=== PATIENT | female | born 1995 | race Caucasian/White ===

== ENCOUNTER 2016-11-01 13:58 | Emergency (ER) | payer BC ==
[2016-11-01 16:14] VITALS: BP 126/79
--- NOTE | 2016-11-01 16:53 | UC ---
Lower Extremity/Ankle HPI - HPI Summary HPI Summary: 21 year old female presents with Left ankle pain. Patient rolled the ankle playing basketball. Pain located in the medial right ankle, 6/10 pain at rest, 8/10 pain when weight bearing. Patient unable to touch her heel to the floor, states she has significant swelling in the left ankle and foot. Denies numbness /tingling in the left foot. - History of Current Complaint Chief Complaint: UCLowerExtremity Stated Complaint: ANKLE INJURY Time Seen by Provider: 11/01/16 16:24 Hx Obtained From: Patient Hx Last Menstrual Period: 10/22/16 ?: No Onset/Duration: Sudden Onset Severity Initially: Severe Severity Currently: Severe Pain Intensity: 6 Pain Scale Used: 0-10 Numeric Aggravating Factor(s): Standing, Ambulation Alleviating Factor(s): Rest, Elevation, Ice Able to Bear Weight: Yes - Walked into [facility], supporting the leg with her toes - Risk Factors Gout Risk Factors: Negative DVT Risk Factors: Negative Septic Arthritis Risk Factor: Negative - Allergies/Home Medications Allergies/Adverse Reactions: Allergies Allergy/AdvReac Type Severity Reaction Status Date / Time No Known Allergies Allergy Verified 11/01/16 16:08 PMH/Surg Hx/FS Hx/Imm Hx Previously Healthy: Yes Endocrine History Of: Denies: Diabetes Cardiovascular History Of: Denies: Hypertension, Pacemaker/ICD Respiratory History Of: Reports: Asthma - "SPORTS INDUCED ASTHMA" GI/ History Of: Denies: Renal Disease Neurological History Of: Denies: TIA, CVA, Dementia, Seizures, Migraine Psychological History Of: Denies: Anxiety, Depression, Bipolar Disorder, Schizophrenia, Post Traumatic Stress Disorder - Surgical History Surgical History: Yes Surgery Procedure, Year, and Place: wrist surgery 2016 - Family History Known Family History: Positive: Cardiac Disease - Social History Occupation: Student Alcohol Use: Rare Alcohol Amount: ONCE EVERY 2 WEEKS Substance Use Type: None Substance Use Comment - Amount & Last Used: PT STATES SHE HAS SMOKED MARIJUANA BEFORE BUT NOT RECENTLY Smoking Status (MU): Never Smoked Tobacco Have You Smoked in the Last Year: No Household Exposure Type: Cigarettes Review of Systems Constitutional: Negative Skin: Bruising - Left medial ankle Eyes: Negative ENT: Negative Respiratory: Negative Cardiovascular: Negative Gastrointestinal: Negative Genitourinary: Negative Motor: Decreased ROM - left ankle/foot. Unable to flex or extend the foot related to pain, Weakness - left ankle Musculoskeletal: Decreased ROM - left foot/ankle, Edema - Left ankle Neurological: Negative Psychological: Negative All Other Systems Reviewed And Are Negative: Yes Physical Exam Triage Information Reviewed: Yes Appearance: Well-Appearing Vital Signs: Initial Vital Signs Temp 98.2 F 11/01/16 16:09 Pulse 87 11/01/16 16:09 Resp 18 11/01/16 16:09 BP 126/79 11/01/16 16:09 Pulse Ox 100 11/01/16 16:09 Vital Signs Reviewed: Yes Eyes: Positive: Conjunctiva Clear ENT Exam: Normal ENT: Positive: Hearing grossly normal, Pharynx normal, TMs normal Neck: Positive: Supple, Nontender, No Lymphadenopathy Respiratory: Positive: Lungs clear, Normal breath sounds, No respiratory distress, No accessory muscle use Cardiovascular: Positive: RRR, No Murmur, Pulses Normal Abdomen Description: Positive: Nontender, No Organomegaly, Soft Bowel Sounds: Positive: Present Musculoskeletal: Positive: Strength Limited @ - Left foot/ankle, ROM Limited @ - Left ankle, Edema @ - left medial ankle/foot Neurological: Positive: Alert Skin: Positive: Other - Bruising around left ankle Lower Extremity Course/Dx - Differential Dx/Diagnosis Provider Diagnoses: Left medial ankle sprain Discharge - Discharge Plan Condition: Stable Disposition: HOME Patient Education Materials: Ankle Sprain (ED) Referrals: Non Staff,Doctor [Primary Care Provider] -
[2016-11-01] MEDS ORDERED: Ibuprofen TAB* 600 MG PO ONE (17:00)
--- NOTE | 2016-11-01 17:47 | RAD ---
INDICATION: Left ankle injury. TECHNIQUE: 3 views of the left ankle were obtained. FINDINGS: There is diffuse soft tissue swelling. The bones are in normal alignment. No fracture is seen. Joint spaces appear maintained. IMPRESSION: NO EVIDENCE FOR FRACTURE.
== END 2016-11-01 18:10 | disposition home or self-care (01) ==
LOC: UCEAST 13:58
DX: S93.402A Sprain of unspecified ligament of left ankle, initial encounter (principal); S90.02XA Contusion of left ankle, initial encounter; X50.1XXA Overexertion from prolonged static or awkward postures, initial encounter; Y93.67 Activity, basketball; Y92.310 Basketball court as the place of occurrence of the external cause; Z77.22 Contact with and (suspected) exposure to environmental tobacco smoke (acute) (chronic)
CPT/HCPCS: 99213; A9270-GY; G0463

== ENCOUNTER 2018-04-02 20:48 | Emergency (ER) | payer BC ==
[2018-04-02] MEDS ORDERED: Ondansetron ODT TAB* 4 MG PO ONE (21:41)
[2018-04-02] MEDS ORDERED: SUMAtriptan SQ* 6 MG/0.5 ML VIAL SUBCUT ONE (21:41)
[2018-04-02 21:46] VITALS: BP 127/80
--- NOTE | 2018-04-02 21:55 | UC ---
Headache HPI - HPI Summary HPI Summary: patient states that for the past 3 days she has throbbing pain around right eye and temporo frontal area which is 9/10. She vomited twice and although nauseous , has been able to consistently hydrate herself. She denies prodrome, states lights make it worse, has been taking ibuprofen to no avail, she states she has FHX of migraines. She has had a head cold for the past 3 weeks and has sinus pressure. She also started oral contraceptives today, previously on Depoprovera. - History Of Current Complaint Chief Complaint: UCHeadache Stated Complaint: HEADACHE,VOMITING Time Seen by Provider: 04/02/18 21:25 Hx Obtained From: Patient Hx Last Menstrual Period: 04/02/18, spotting. Was on depo shot before. ?: No Onset/Duration: Sudden Onset, Lasting Days Onset Of Symptoms: Still Present Initially Headache Was: Initial Pain Scale(0-10)= - 8 Currently Pain Is: Current Pain Scale(0-10)= - 9, Severe Pain Intensity: 9 Timing: Constant, Days Character: Throbbing, Pressure, Migraine Location of Headache: Frontal Aggravating Factor(s): Position Change, Bright Lights Allevating Factor(s): Nothing Associated Signs And Symptoms: Positive: Nausea, Sinus Pressure - Risk Factors SAH Risk Factors: Negative Meningitis Risk Factors: Negative SDH Risk Factors: Negative Temporal Arteritis Risk Factors: Negative - Allergies/Home Medications Allergies/Adverse Reactions: Allergies Allergy/AdvReac Type Severity Reaction Status Date / Time No Known Allergies Allergy Verified 04/02/18 20:55 PMH/Surg Hx/FS Hx/Imm Hx Previously Healthy: Yes - Surgical History Surgical History: Yes Surgery Procedure, Year, and Place: wrist surgery 2016, ankle reconstruction 2017 - Family History Known Family History: Positive: Cardiac Disease, Other - migraine in [place] - Social History Alcohol Use: Weekly Alcohol Amount: ONCE EVERY 2 WEEKS Substance Use Type: None Substance Use Comment - Amount & Last Used: PT STATES SHE HAS SMOKED MARIJUANA BEFORE BUT NOT RECENTLY Smoking Status (MU): Never Smoked Tobacco Have You Smoked in the Last Year: No Household Exposure Type: Cigarettes Review of Systems Gastrointestinal: Vomiting, Nausea Neurological: Headache All Other Systems Reviewed And Are Negative: Yes Physical Exam Triage Information Reviewed: Yes Appearance: Pain Distress, Obese Vital Signs: Initial Vital Signs Temp 98.2 F 04/02/18 20:57 Pulse 98 04/02/18 20:57 Resp 18 04/02/18 20:57 BP 141/94 04/02/18 20:57 Pulse Ox 100 04/02/18 20:57 Vital Signs Reviewed: Yes Eyes: Positive: Conjunctiva Clear ENT: Positive: Normal ENT inspection, Hearing grossly normal, Pharynx normal, TMs normal, Uvula midline Neck: Positive: Supple, Nontender, No Lymphadenopathy Respiratory: Positive: Chest non-tender, Lungs clear, Normal breath sounds, No respiratory distress, No accessory muscle use Cardiovascular: Positive: RRR, No Murmur, Pulses Normal, Brisk Capillary Refill Abdomen Description: Positive: Nontender, No Organomegaly, Soft Bowel Sounds: Positive: Present Musculoskeletal: Positive: Strength Intact, ROM Intact, No Edema Neurological: Positive: Alert, Muscle Tone Normal, Other: - cn 2-12 grossly intact, sensory intact, gait intact, DTRs symmetric and present strength 5/5 x4 Headache Course/Dx - Course Course Of Treatment: migraine headache, second episode, possibly related to sinusitis, she denies nasal discharge discoloration or fever/chills. Start medications as prescribed for headache/nausea. f/u PCP in 1-2 weeks - Differential Dx/Diagnosis Provider Diagnoses: Migraine Headache Discharge - Sign-Out/Discharge Documenting (check all that apply): Discharge/Admit/Transfer - Discharge Plan Condition: Good Disposition: HOME Prescriptions: Ondansetron ODT TAB* [Zofran 4 MG Odt TAB*] 4 mg PO Q8H PRN 3 Days #10 tab.odt PRN Reason: Nausea Rizatriptan ODT (NF) [Maxalt-GORE SEAMER (NF)] 10 mg PO DAILY 3 Days #10 tab Patient Education Materials: Sumatriptan (By mouth), Migraine Headache (ED), Ondansetron (By mouth) Forms: *Work Release Referrals: Body Ruby JERONIMO [Primary Care Provider] - - Billing Disposition and Condition Condition: GOOD Disposition: Home
== END 2018-04-02 22:19 | disposition home or self-care (01) ==
LOC: UCEAST 20:48
DX: G43.909 Migraine, unspecified, not intractable, without status migrainosus (principal)
CPT/HCPCS: 96372; 99212; A9270-GY; G0463; J3030

== ENCOUNTER 2018-09-08 12:51 | Emergency (ER) | payer BC ==
[2018-09-08 13:25] VITALS: BP 126/73
--- NOTE | 2018-09-08 14:11 | UC ---
Respiratory Complaint HPI - HPI Summary HPI Summary: Pt c/o cough x 1 week. Pt reports having a fever last evening - History of Current Complaint Chief Complaint: UCGeneralIllness Stated Complaint: COUGH Time Seen by Provider: 09/08/18 14:07 Hx Obtained From: Patient Hx Last Menstrual Period: 08/17/18 ?: No Onset/Duration: Sudden Onset, Lasting Weeks - 1, Still Present Timing: Intermittent Episodes Severity Initially: Mild Severity Currently: Mild Pain Intensity: 5 Character: Cough: Nonproductive Aggravating Factors: Deep Breaths, Recumbent Position Alleviating Factors: Nothing Associated Signs And Symptoms: Positive: Fever - Risk Factors Pulmonary Embolism Risk Factors: Negative Cardiac Risk Factors: Negative Pseudomonas Risk Factors: Negative Tuberculosis Risk Factors: Negative - Allergies/Home Medications Allergies/Adverse Reactions: Allergies Allergy/AdvReac Type Severity Reaction Status Date / Time No Known Allergies Allergy Verified 09/08/18 13:21 Home Medications: Home Medications Cetirizine* [ZyrTEC 10 MG TAB*] 10 mg PO DAILY 09/08/18 [History Confirmed 09/08] Norgestimate-Ethinyl Estradiol [Ortho Tri-Cyclen Lo Tablet] 1 each PO DAILY 04/19 [History Confirmed 09/08/18] PMH/Surg Hx/FS Hx/Imm Hx Previously Healthy: Yes - Surgical History Surgical History: Yes Surgery Procedure, Year, and Place: wrist surgery 2016, ankle reconstruction 2017 - Family History Known Family History: Positive: Cardiac Disease, Other - migraine in [place] - Social History Occupation: Employed Full-time Lives: With Family Alcohol Use: Rare Alcohol Amount: ONCE EVERY 2 WEEKS Substance Use Type: None Substance Use Comment - Amount & Last Used: PT STATES SHE HAS SMOKED MARIJUANA BEFORE BUT NOT RECENTLY Smoking Status (MU): Never Smoked Tobacco Have You Smoked in the Last Year: No Household Exposure Type: Cigarettes Review of Systems All Other Systems Reviewed And Are Negative: Yes Constitutional: Positive: Fever Skin: Positive: Negative Eyes: Positive: Negative ENT: Positive: Negative Respiratory: Positive: Cough Cardiovascular: Positive: Negative Gastrointestinal: Positive: Negative Genitourinary: Positive: Negative Motor: Positive: Negative Neurovascular: Positive: Negative Musculoskeletal: Positive: Negative Neurological: Positive: Negative Psychological: Positive: Negative Is Patient Immunocompromised?: No Physical Exam Triage Information Reviewed: Yes Appearance: Well-Appearing Vital Signs: Initial Vital Signs Temp 98 F 09/08/18 13:20 Pulse 85 09/08/18 13:20 Resp 18 09/08/18 13:20 BP 126/73 09/08/18 13:20 Pulse Ox 100 09/08/18 13:20 Vital Signs Reviewed: Yes Eye Exam: Normal ENT Exam: Normal Dental Exam: Normal Neck exam: Normal Respiratory Exam: Normal Cardiovascular Exam: Normal Musculoskeletal Exam: Normal Neurological Exam: Normal Psychological Exam: Normal Skin Exam: Normal UC Diagnostic Evaluation - Laboratory O2 Sat by Pulse Oximetry: 100 Respiratory Course/Dx - Differential Dx/Diagnosis Differential Diagnosis/HQI/PQRI: Bronchitis, Influenza Provider Diagnosis: Viral URI with cough Discharge - Sign-Out/Discharge Documenting (check all that apply): Patient Departure All imaging exams completed and their final reports reviewed: No Studies - Discharge Plan Condition: Stable Disposition: HOME Prescriptions: Albuterol HFA INHALER* [Ventolin HFA Inhaler*] 1 - 2 puff INH Q6H PRN #1 mdi PRN Reason: Sob/Wheezing Benzonatate CAP* [Tessalon 100 MG CAP*] 100 mg PO Q8H PRN #30 cap PRN Reason: Cough predniSONE TAB* [Deltasone 20 MG TAB*] 20 mg PO DAILY #4 tab Patient Education Materials: Acute Cough (ED) Referrals: Ruby Echols MD [Primary Care Provider] - If Needed - Billing Disposition and Condition Condition: STABLE Disposition: Home
== END 2018-09-08 14:19 | disposition home or self-care (01) ==
LOC: UCCORT 12:51
DX: J06.9 Acute upper respiratory infection, unspecified (principal); R05 Cough
CPT/HCPCS: 99212; G0463

== ENCOUNTER 2019-05-14 10:57 | Emergency (ER) | payer BC ==
[2019-05-14 11:21] VITALS: BP 128/86
[2019-05-14] MEDS ORDERED: Ketorolac INJ* 30 MG/ML 1 ML VIAL IM ONE (11:57)
--- NOTE | 2019-05-14 12:42 | UC ---
Hypertension HPI - HPI Summary HPI Summary: 23 yo female with frontal SHARIF x 4-5 days n/v photophobia no still neck has had similar SHARIF in past Rxed one for presumed LD no rash - History of Current Complaint Chief Complaint: UCHeadache Stated Complaint: MIGRAINE Time Seen by Provider: 05/14/19 11:37 Hx Obtained From: Patient Hx Last Menstrual Period: 04/2019 Onset/Duration: Gradual Onset, Lasting Days Timing: Constant Aggravating Factor(s): Nothing Alleviating Factor(s): Nothing Associated Signs And Symptoms: Positive: Headaches - Risk Factors Cardiac Risk Factors: Negative - Allergies/Home Medications Allergies/Adverse Reactions: Allergies Allergy/AdvReac Type Severity Reaction Status Date / Time No Known Allergies Allergy Verified 05/14/19 11:15 Home Medications: Home Medications Famotidine TAB* [Pepcid 20 MG TAB*] 20 mg PO DAILY 05/14/19 [History Confirmed 05/14/19] PMH/Surg Hx/FS Hx/Imm Hx Previously Healthy: Yes Neurological History: Migraine - Surgical History Surgical History: Yes Surgery Procedure, Year, and Place: wrist surgery 2015, ankle reconstruction 2017 - Family History Known Family History: Positive: Cardiac Disease, Other - migraine in [place] - Social History Alcohol Use: Rare Alcohol Amount: ONCE EVERY 2 WEEKS Substance Use Type: None Substance Use Comment - Amount & Last Used: PT STATES SHE HAS SMOKED MARIJUANA BEFORE BUT NOT RECENTLY Smoking Status (MU): Light Every Day Tobacco Smoker Type: Cigarettes Amount Used/How Often: 5 cigarettes daily Have You Smoked in the Last Year: No Household Exposure Type: Cigarettes Review of Systems All Other Systems Reviewed And Are Negative: Yes Constitutional: Positive: Negative Skin: Positive: Negative Eyes: Positive: Photophobia ENT: Positive: Negative Respiratory: Positive: Negative Cardiovascular: Positive: Negative Gastrointestinal: Positive: Vomiting, Nausea Motor: Positive: Negative Neurovascular: Positive: Negative Musculoskeletal: Positive: Negative Neurological: Positive: Headache Psychological: Positive: Negative Physical Exam Triage Information Reviewed: Yes Appearance: Well-Appearing, No Pain Distress, Well-Nourished Vital Signs: Initial Vital Signs Temp 97.6 F 05/14/19 11:16 Pulse 96 05/14/19 11:16 Resp 16 05/14/19 11:16 BP 128/86 05/14/19 11:16 Pulse Ox 99 05/14/19 11:16 Vital Signs Reviewed: Yes Eyes: Positive: Conjunctiva Clear, Other: - EOMI/PERRL ENT: Positive: Hearing grossly normal. Negative: Pharyngeal erythema, Nasal congestion, Tonsillar swelling, Tonsillar exudate, Trismus, Muffled voice Dental Exam: Normal Neck: Positive: Supple, Nontender, No Lymphadenopathy Respiratory: Positive: Lungs clear, Normal breath sounds, No respiratory distress, No accessory muscle use Cardiovascular: Positive: RRR, No Murmur, Pulses Normal Musculoskeletal: Positive: ROM Intact, No Edema Neurological: Positive: Alert, Other: - cn 2-12 intact, nonfocal exam, strenth intact, DTRs brisk and symmetric, normal gait Psychological Exam: Normal Skin Exam: Normal Diagnostics - Radiology No standard instances Radiology Interpretation Completed By: Radiologist Summary of Radiographic Findings: CT neg Hypertension Course/Dx - Differential Dx/Diagnosis Provider Diagnosis: Headache Discharge - Sign-Out/Discharge Documenting (check all that apply): Patient Departure All imaging exams completed and their final reports reviewed: No Studies - Discharge Plan Condition: Stable Disposition: HOME Patient Education Materials: Acute Headache (ED) Forms: *Work Release Referrals: [facility] [place] [facility] [Outside] - If Needed Additional Instructions: blood work pending recheck in 2 days if not completely better - Billing Disposition and Condition Condition: STABLE Disposition: Home
[2019-05-14 18:36] LABS: ABS Eosinophils 0.4 10^3/ul (0-0.6); ABS Lymphocytes 1.6 10^3/ul (1.0-4.8); ABS Monocytes 0.9 10^3/ul (0-0.8); ABS Neutrophils 4.3 10^3/ul (1.5-7.7); Eosinophil % 5.2 %; Hematocrit 42 % (35-47); Hemoglobin 14.1 g/dL (12.0-16.0); Lymphocyte % 22.5 %; Mean Corpuscular HGB Conc 33 g/dL (31-36); Mean Corpuscular Hemoglobin 30 pg (27-31); Mean Corpuscular Volume 91 fL (80-97); Mean Platelet Volume 9.7 fL (7.4-10.4); Platelet Count 237 10^3/uL (150-450); Red Blood Count 4.62 10^6 /uL (3.70-4.87); Red Cell Distribution Width 14 % (10-15); White Blood Count 7.2 10^3/uL (3.5-10.8)
--- NOTE | 2019-05-19 07:16 | UC ---
- Progress Note Progress Note: Neg IgG, IgM Lyme disease no change [email or web address] 05/19/19 Course/Dx - Diagnoses Provider Diagnoses: Headache Discharge - Sign-Out/Discharge Documenting (check all that apply): Post-Discharge Follow Up All imaging exams completed and their final reports reviewed: No Studies - Discharge Plan Condition: Stable Disposition: HOME Prescriptions: Naproxen [Naproxen 500 mg tab] 500 mg PO BID PRN #20 tablet PRN Reason: Pain Ondansetron TAB* [Zofran Tab*] 4 mg PO Q6H PRN #10 tab PRN Reason: Nausea Patient Education Materials: Acute Headache (ED) Forms: *Work Release Referrals: [facility] [facility] [place]] - If Needed Additional Instructions: blood work pending recheck in 2 days if not completely better - Billing Disposition and Condition Condition: STABLE Disposition: Home
== END 2019-05-14 13:07 | disposition home or self-care (01) ==
LOC: UCCORT 10:57
DX: R51 Headache (principal); F17.210 Nicotine dependence, cigarettes, uncomplicated
CPT/HCPCS: 36415; 70450; 85025; 86617; 86618; 96372; 99212; G0463; J1885

== ENCOUNTER 2019-07-31 11:53 | Emergency (ER) | payer BC ==
[2019-07-31 12:55] VITALS: BP 138/80
[2019-07-31] MEDS ORDERED: Ondansetron ODT TAB* 4 MG PO ONE (13:50)
--- NOTE | 2019-08-05 09:05 | UC ---
UC General HPI - HPI Summary HPI Summary: Patient presents to urgent care reporting feeling body aches, nausea, head congestion, cough. Patient states she's had a fever unresponsive to Tylenol. Patient states her ears are congested to her sinuses are congested with postnasal drip. He states she had nausea and vomiting earlier today. Patient states she still feels nauseous. No abdominal pain. Patient does have sick contacts some symptoms. Patient states she missed work today. Patient's medications review this visit. Pt requesting work note - History of Current Complaint Chief Complaint: UCGeneralIllness Stated Complaint: NAUSEA/VOMITING/EAR PAIN/COUGH Time Seen by Provider: 07/31/19 13:30 Hx Obtained From: Patient Hx Last Menstrual Period: 07/22/19 on BCP Pain Intensity: 8 - Allergy/Home Medications Allergies/Adverse Reactions: Allergies Allergy/AdvReac Type Severity Reaction Status Date / Time No Known Allergies Allergy Verified 07/31/19 12:55 PMH/Surg Hx/FS Hx/Imm Hx Previously Healthy: Yes - Surgical History Surgical History: Yes Surgery Procedure, Year, and Place: wrist surgery 2016, ankle reconstruction 2017 - Family History Known Family History: Positive: Cardiac Disease, Other - migraine in [place], Non- Contributory - Social History Lives: With Family Alcohol Use: Weekly Alcohol Amount: once a week Substance Use Type: Marijuana Substance Use Comment - Amount & Last Used: few times a week Smoking Status (MU): Light Every Day Tobacco Smoker Type: Cigarettes Amount Used/How Often: 5 cigarettes daily Have You Smoked in the Last Year: No Household Exposure Type: Cigarettes Review of Systems All Other Systems Reviewed And Are Negative: Yes Constitutional: Positive: Fever, Fatigue ENT: Positive: Ear Ache, Nasal Discharge, Sinus Congestion, Sinus Pain/ Tenderness Respiratory: Positive: Cough. Negative: Shortness Of Breath Gastrointestinal: Positive: Vomiting, Nausea. Negative: Abdominal Pain Genitourinary: Positive: Negative Physical Exam - Summary Physical Exam Summary: Vital Signs Reviewed: Yes A+Ox3, no distress, tired appearing Eyes: Conjunctiva Clear, AMAN. EOM intact and full ENT: Hearing grossly normal TM x 2 clear, + ttp max sinuses r>L, + PND, turbinates and inflammed, lips dry, uvula midline, no exudate, no erythema Neck: Positive: Supple Respiratory: Positive: No respiratory distress, No accessory muscle use + CTA throughout no w/r Cardiovascular: RRR nl s1, s2 no m/r CBT <2 sec abd soft + BS, nd, mild no guarding, no distension mild diffuse tenderness, inconsistent, no CVA Musculoskeletal Exam: LARA x 4 without difficulty Strength Intact, ROM Intact Neurological: Positive: Alert, + sensation throughout Psychological: Positive: Normal Response To examiner Skin: Positive: no rash, no ecchymosis Triage Information Reviewed: Yes Vital Signs: Initial Vital Signs Temp 98.5 F 07/31/19 12:48 Pulse 113 07/31/19 12:48 Resp 16 07/31/19 12:48 BP 138/80 07/31/19 12:48 Pulse Ox 99 07/31/19 12:48 Re-Evaluation - Re-Evaluation First Eval Change: Improved Comment: Patient states the Zofran made her feel better. Patient sipping some conjunctival is without difficulty. Reviewed urine. We'll start respiratory workup. Should return precaution. Secretion percussion. Patient comfortable and agreeable to plan. Course/Dx - Course Course Of Treatment: Patient presents to urgent care stating she's had progressive head congestion sinus pressure or postnasal drip cough. Today had nausea and vomiting. Patient states she had a fever today. Patient has tried some [id number] medications without improvement. On exam vital signs are stable. Patient appears mildly dry with a nonacute abdomen. Patient does have mild diffuse tenderness but nothing focal. No check urine, and Zofran and reassess. Patient is asking for no work today. Medical exam consistent with sinusitis. - Diagnoses Provider Diagnosis: Sinusitis, Vomiting Discharge ED - Sign-Out/Discharge Documenting (check all that apply): Patient Departure All imaging exams completed and their final reports reviewed: No Studies - Discharge Plan Condition: Stable Disposition: HOME Prescriptions: Amoxicillin PO (*) [Amoxicillin 500 MG CAP*] 500 mg PO Q12H #14 cap Ondansetron HCl [Zofran] 4 mg PO Q6HR #10 tablet Patient Education Materials: Sinusitis (ED), Acute Nausea and Vomiting (ED) Forms: *Work Release Referrals: Ruby Echols MD [Primary Care Provider] - Additional Instructions: - For the first 6 hours, eat and drink clears (water, lobo zoya, soup broth, jello, popsicles, Gatorade). If you tolerate this okay, add bland foods such as dry toast, scrambled eggs, crackers. Wait until you are feeling better for 24 hours before eating spicy food, acidic food, tomato based food, fried food. - Take zofran every 6 hours as prescribed - Get plenty of restful sleep. - If you develop pain, fevers, uncontrolled vomiting or any other concerns it is recommended you go to the emergency department for further evaluation and treatment - Stay well hydrated. Drink plenty of non-alcoholic, non-caffinated beverages. - Alternate ibuprofen (Advil, Motrin) 600mg and Tylenol every 3 hours for pain or fever. Take with food. Do NOT take for more than 4-5 days. - These infections are spread by secretions - do NOT share eating or drinking utensils - clean items you share with other people such as cell phones, computer mouse, TV remote, computer tablets,etc. Once you have been antibiotics for 2 days, change your toothbrush and your pillowcase. - get plenty of restful sleep - humidify the air in the room where you sleep - boil water, run a hot steam shower, vaporizer, cups of water by heat register - okay to take over the counter decongestant and cough medication - use nasal spray as prescribed - contact your doctor or return with questions or concerns - Billing Disposition and Condition Condition: STABLE Disposition: Home
== END 2019-07-31 14:29 | disposition home or self-care (01) ==
LOC: UCCORT 11:53
DX: J32.9 Chronic sinusitis, unspecified (principal); R11.2 Nausea with vomiting, unspecified; R50.9 Fever, unspecified; Z87.891 Personal history of nicotine dependence
CPT/HCPCS: 81003; 84702; 87086; 99212; A9270-GY; G0463

== ENCOUNTER 2022-11-07 11:47 | Inpatient (IN) ==
[2022-11-07 12:51] LABS: Urine Benzodiazepine Screen None Detected (None Detect); Urine Cannabinoids Screen Presumptive Positive (None Detect); Urine Opiates Screen None Detected (None Detect)
[2022-11-07] MEDS ORDERED: Lactated Ringers 1000 ml BAG 1,000 ML IV ONE ×3 (13:12→13:54)
[2022-11-07] MEDS ORDERED: Buffered Lidocaine 1% SYRIN 1 ml INTRADERM ONE (13:12)
[2022-11-07] MEDS ORDERED: Betamethasone 6 mg/ml 5 ml VIAL IM ONE (13:12)
[2022-11-07] MEDS ORDERED: Promethazine INJ(RESTRICTED) 25 MG/ML 1 ml VIAL IV PRN (13:12)
[2022-11-07] MEDS ORDERED: Nalbuphine 10 MG/ML 1 ML VIAL IV PRN (13:12)
[2022-11-07] MEDS ORDERED: Buffered Lidocaine 1% SYRIN 1 ml ONE (13:26)
[2022-11-07] MEDS ORDERED: Penicillin G Potassium IV 5,000,000 UNITS in NS 0.9% 100 ml BAG 100 ML IVPB ONE (13:29)
[2022-11-07] MEDS ORDERED: Sodium Citrate/Citric Acid LIQ 15 ML UDC PO PRN (13:54)
[2022-11-07] MEDS ORDERED: Lactated Ringers 1000 ml BAG 1,000 ML IV SCH (14:00)
[2022-11-07] MEDS ORDERED: OBEPIDURAL (200 ML) 200 ML EPIDURAL SCH (14:00)
[2022-11-07] MEDS ORDERED: Penicillin G Potassium IV 3,000,000 UNITS in NS 0.9% 100 ml BAG 100 ML IVPB SCH ×2 (14:00→18:30)
[2022-11-07 14:03] LABS: ABS Eosinophils 0.2 10^3/ul (0-0.6); ABS Lymphocytes 1.2 10^3/ul (1.0-4.8); ABS Monocytes 1.5 10^3/ul (0-0.8); ABS Neutrophils 16.1 10^3/ul (1.5-7.7); Eosinophil % 0.8 %; Hematocrit 37 % (35-47); Lymphocyte % 6.5 %; Mean Corpuscular HGB Conc 32 g/dL (31-36); Mean Corpuscular Hemoglobin 30 pg (27-31); Mean Corpuscular Volume 92 fL (80-97); Mean Platelet Volume 8.7 fL (7.4-10.4); Platelet Count 249 10^3/uL (150-450); Red Blood Count 4.06 10^6 /uL (3.70-4.87); Red Cell Distribution Width 14 % (10-15)
[2022-11-07] MEDS ORDERED: Bupivacaine 0.25% SDV PF 10 ML VIAL INJ ONE (14:11)
[2022-11-07] MEDS ORDERED: Lidocaine 2% w/ EPI 1:200,000 MPF 20 ML SDV VIAL ONE (14:20)
[2022-11-07 14:24] LABS: Albumin 3.5 g/dL (3.2-5.2); Albumin/Globulin Ratio 1.5 (1-3); Calcium 9.2 mg/dL (8.6-10.3); Creatinine, Serum 0.49 mg/dL (0.51-0.95); Globulin 2.4 g/dL (2-4); Potassium 4.1 mmol/L (3.5-5.0); Total Bilirubin 0.3 mg/dL (0.2-1.0); Total Protein 5.9 g/dL (6.4-8.9); Uric Acid 3.8 mg/dL (2.3-6.6); eGFR CKD-EPI 133.2 (>60)
[2022-11-07] MEDS: Lactated Ringers 1000 ml BAG 1,000 ML IV SCH ×2 (15:20→19:20)
[2022-11-07] MEDS ORDERED: Ondansetron 4 mg VIAL 2 MG/ML 2 ml VIAL IV PRN ×2 (15:54→22:03)
[2022-11-07 18:58] LABS: Urine Appearance Clear; Urine Bilirubin Negative (Negative); Urine Blood Negative (Negative); Urine Color Yellow; Urine Glucose Negative (Negative); Urine Ketones Negative (Negative); Urine Nitrite Negative (Negative); Urine Protein Negative (Negative); Urine Specific Gravity 1.014 (1.002-1.030); Urine Urobilinogen Negative (Negative)
[2022-11-07] MEDS ORDERED: Chloroprocaine 3% 20 ml VIAL ONE (19:41)
[2022-11-07] MEDS ORDERED: ceFOXitin 2 GM IVPREMIX 2 GM/50 ML BAG IVPB ONE (20:52)
[2022-11-07] MEDS ORDERED: ceFOXitin 2 GM IVPREMIX 2 GM/50 ML BAG ONE ×2 (20:52)
[2022-11-07] MEDS ORDERED: Ondansetron 4 mg VIAL 2 MG/ML 2 ml VIAL ONE (21:01)
[2022-11-07] MEDS ORDERED: Oxytocin 10 UNITS/ML 1 ML VIAL ONE (21:02)
[2022-11-07] MEDS ORDERED: Phenylephrine 40 mcg/mL 10mL (400mcg) SYRINGE ONE (21:11)
[2022-11-07] MEDS ORDERED: Morphine PF AMP (0.5MG/ML) 5 MG/10 ML AMP ONE (21:14)
[2022-11-07] MEDS ORDERED: Metoclopramide 5 MG/ML VIAL (10 mg) ONE (21:29)
[2022-11-07] MEDS ORDERED: Acetaminophen IV 1 GM/100ML 1,000 MG/100 ML BAG IV PRN (22:03)
[2022-11-07] MEDS ORDERED: Metoclopramide 5 MG/ML VIAL (10 mg) IV PRN (22:03)
[2022-11-07] MEDS ORDERED: Naloxone 0.4 mg VIAL 0.4 mg/ml 1 ml VIAL IV PUSH PRN (22:03)
[2022-11-08 10:10] LABS: Hematocrit 31 % (35-47); Mean Corpuscular HGB Conc 32 g/dL (31-36); Mean Corpuscular Hemoglobin 29 pg (27-31); Mean Corpuscular Volume 91 fL (80-97); Platelet Count 221 10^3/uL (150-450); Red Blood Count 3.42 10^6 /uL (3.70-4.87); Red Cell Distribution Width 14 % (10-15)
[2022-11-08 10:20] LABS: ABS Basophils 0.1 10^3/ul (0-0.2); ABS Lymphocytes 1.3 10^3/ul (1.0-4.8); ABS Monocytes 1.8 10^3/ul (0-0.8); ABS Neutrophils 19.8 10^3/ul (1.5-7.7); Lymphocyte % 5.5 %
[2022-11-09 19:52] VITALS: BP 146/79
[2022-11-09] MEDS ORDERED: Varicella Virus Vaccine Live 0.5 ML VIAL SUBCUT ONE (22:00)
[2022-11-09] MEDS ORDERED: Measles, Mumps,Rubella VACC 0.5 ML/VIAL SUBCUT ONE (22:00)
== END 2022-11-09 23:35 | disposition home or self-care (01) | DRG 540 ==
LOC: MCHOBOUT 11:47 → MCHOB 13:17
PROVIDERS: ADMIT Obstetrics & Gynecology; ATTEND Obstetrics & Gynecology